=== PATIENT | female | born 1995 | race Asian ===

== ENCOUNTER 2018-09-27 19:34 | Emergency (ER) | payer OTHER ==
[2018-09-27 20:08] VITALS: BP 141/84
--- NOTE | 2018-09-27 20:57 | UC ---
Abdominal Pain Female HPI - HPI Summary HPI Summary: 23 y/o female presents to urgent care accompany by her friend c/o diffuse cramping abdominal pain since 1530pm today. Pt reports symptoms started w/ nausea and then severe cramping abdominal pain developed. She took Advil PO, 1 tab, but pain didn't improve, it is constant, starts around umbilicus and then becomes sharp and diffuse radiating to her mid back, Pain 7/10 in severity . Pt states 2 loose BM today. Pt Ate lunch normally and she though it was food poisoning at first. Pt Pt denies fever, SOB, chest pain, N/V/D, flank pain, urinary symptoms, vaginal discharge or Hx of STD's. - History of Current Complaint Chief Complaint: UCAbdominalPain Stated Complaint: ABDOMINAL PAIN Time Seen by Provider: 09/27/18 20:18 Hx Obtained From: Patient Hx Last Menstrual Period: mid august ?: No Onset/Duration: Gradual Onset Timing: Constant - but then becomes sharp at times Severity Initially: Mild Severity Currently: Moderate Pain Intensity: 7 Pain Scale Used: 0-10 Numeric Location: Diffuse - starts in the periumbilical area Radiates: Yes Radiates to: Other - back Character: Cramping Aggravating Factor(s): Nothing Alleviating Factor(s): OTC Analgesics - took 1 tab advil PO around 1600pm, but then pain returned in waves Associated Signs and Symptoms: Positive: Back Pain, Nausea - which resolved now , Other: - 2 episodes of loose stool. Negative: Fever, Dizzy, Constipation, Blood in Stool, Urinary Symptoms, Decreased Appetite - Risk Factors Ectopic Risk Factor: Negative Ovarian Torsion Risk Factor: Negative Allergies/Adverse Reactions: Allergies Allergy/AdvReac Type Severity Reaction Status Date / Time azithromycin [From Zithromax] Allergy Rash Verified 09/27/18 20:04 milk Allergy Unknown Verified 09/27/18 20:05 Reaction Details peanut Allergy Unknown Verified 09/27/18 20:05 Reaction Details shellfish derived Allergy Unknown Verified 09/27/18 20:05 Reaction Details Sulfa (Sulfonamide Allergy Rash Verified 09/27/18 20:04 Antibiotics) eggs Allergy Unknown Uncoded 09/27/18 20:05 Reaction Details Home Medications: Home Medications Albuterol HFA INHALER* [Ventolin HFA Inhaler*] 1 puff INH Q4H PRN 09/27/18 [ History Confirmed 09/27/18] Fexofenadine (NF) [Rosalinda 180 (NF)] 180 mg PO DAILY 09/27/18 [History Confirmed 09/27/18] Fluticasone NASAL SPRAY 50MCG* [Flonase NASAL SPRAY 50MCG*] 2 spray BOTH NARES DAILY 09/27/18 [History Confirmed 09/27/18] PMH/Surg Hx/FS Hx/Imm Hx Previously Healthy: Yes Respiratory History: Asthma - Surgical History Surgical History: Yes Surgery Procedure, Year, and Place: R hip surgery May 2017 d/t injury - Family History Known Family History: Positive: Cardiac Disease, Hypertension - Social History Occupation: Student Lives: With Family Alcohol Use: None Substance Use Type: None Smoking Status (MU): Never Smoked Tobacco - Immunization History Vaccination Up to Date: Yes Review of Systems All Other Systems Reviewed And Are Negative: Yes Constitutional: Positive: Negative Skin: Positive: Negative Eyes: Positive: Negative ENT: Positive: Negative Respiratory: Positive: Negative Cardiovascular: Positive: Negative Gastrointestinal: Positive: Abdominal Pain - diffuse and cramping abdominal pain , Nausea, Other - 2 loose BM today Genitourinary: Positive: Negative Motor: Positive: Negative Neurovascular: Positive: Negative Musculoskeletal: Positive: Negative Neurological: Positive: Negative Psychological: Positive: Negative Is Patient Immunocompromised?: No Physical Exam - Summary Physical Exam Summary: Vital Signs Reviewed: Yes General:Patient is a well developed and nourished female adolescent who is sitting comfortable in the examining table. Patient is not in any acute respiratory distress. Eyes: Positive: Conjunctiva Clear - PERRLA, EOMI, fundi grossly normal ENT: Positive: Normal ENT inspection, Hearing grossly normal, Pharynx normal, TMs normal Neck: Positive: Supple, Nontender, No Lymphadenopathy Respiratory: Positive: Chest non-tender, Lungs clear, Normal breath sounds, No respiratory distress Cardiovascular: Positive: RRR,S1 and S2 present, No Murmur, Pulses Normal, Brisk Capillary Refill Abdomen Description: Positive: Flat with no distention. No surface trauma, scars, incisions. normal bowel sounds present in all four quadrants. Tenderness on deep palpation oover the periumbilizal area and LLQ abdomen, guarding, rigidity to palpation. no distension,No masses palpated, no pulsation in epigastric area. No organomegaly. Negative [place] signs. No rebound in the lower quadrants. mild tenderness over McBurneys point. Good femoral pulses bilaterally. No hernia noted. No CVAT bilaterally Musculoskeletal: Positive: Strength Intact, ROM Intact, No Edema,FROM in all major joints, no edema, no cyanosis or clubbing. Neuro: Alert and oriented x 3. No acute neurological deficits. Speech is normal. Psychological: WNL Skin: Dry and warm Triage Information Reviewed: Yes Vital Signs: Initial Vital Signs Temp 99.0 F 09/27/18 20:06 Pulse 62 09/27/18 20:06 Resp 18 09/27/18 20:06 BP 141/84 09/27/18 20:06 Pulse Ox 99 09/27/18 20:06 Abd Pain Female Course/Dx - Course Course Of Treatment: 23 y/o female presents to urgent care accompany by her friend c/o diffuse cramping abdominal pain since 1530pm today. Pt reports symptoms started w/ nausea and then severe cramping abdominal pain developed. She took Advil PO, 1 tab, but pain didn't improve, it is constant, starts around umbilicus and then becomes sharp and diffuse radiating to her mid back, Pain 7/10 in severity . Pt states 2 loose BM today. Pt Ate lunch normally and she though it was food poisoning at first. Pt Pt denies fever, SOB, chest pain, N/V/D, flank pain, urinary symptoms, vaginal discharge or Hx of STD's. Hx obtained. PT is hemodynamically stable, Vital: WNL. PT w/ Point tenderness over the periumbilical area and LLQ abdomen and mild over McBurneys point on examination. UA ordered: negative, tet: negative. Pt needs an abdominal CT and ultrasound to r/o appendicitis or ovarian torsion etc. At this moment, No Ultrasound available. Pt's symptoms and he evaluated PT and he also agrees. He recommended Pt to go to [facility] for further evaluation and treatment. Pt offered Ambulance transfer, but she decline and stated her friend will take her to the [place] ER. I discussed Pt's symptoms w/ DR Syed at [facility] who accepted the patient. Pt left the clinic hemodynamically stable , A&OX3 and ambulating - Differential Dx/Diagnosis Differential Diagnosis: Appendicitis, Ovarian Cyst, Peptic Ulcer Disease, , Urinary Tract Infection, Other - gastroenteritis Provider Diagnosis: Acute abdominal pain Discharge - Sign-Out/Discharge Documenting (check all that apply): Patient Departure - d/c home All imaging exams completed and their final reports reviewed: No Studies - Discharge Plan Condition: Stable Disposition: HOME-RECOMMEND TO ED Patient Education Materials: Acute Abdominal Pain (ED) Referrals: [facility] [place] [facility] [Primary Care Provider] - Additional Instructions: I think you need a higher level or care for your presenting symptoms. I highly recommend you to go to the ER for further evaluation and treatment. The risks of not going can be , sepsis, peritonitis, ovarian cyst or torsion, appendicitis, etc. I spoke to the ER attending Dr. Syed . They are expecting you. - Billing Disposition and Condition Condition: STABLE Disposition: Home-Recommend to ED
== END 2018-09-27 21:25 | disposition home health service (06) ==
LOC: UCEAST 19:34
DX: R10.33 Periumbilical pain (principal); J45.909 Unspecified asthma, uncomplicated; Z88.1 Allergy status to other antibiotic agents; Z91.011 Allergy to milk products; Z91.010 Allergy to peanuts; Z91.013 Allergy to seafood; Z88.2 Allergy status to sulfonamides; Z91.012 Allergy to eggs
CPT/HCPCS: 81003; 84702; 99202; G0463

== ENCOUNTER → 2018-09-27 22:01 | Emergency (ER) | payer OTHER ==
[~2018-09-27 22:01] MED LIST: Bisacodyl SUPP* 10 MG SUPP PR ONE; Magnesium CITRATE* 300 ML BTL PO ONE
--- NOTE | 2018-09-27 23:25 | ED ---
Abdominal Pain/Female - HPI Summary HPI Summary: This patient is a 23 year old F presenting to [facility] referred by urgent care accompanied by friend with a chief complaint of intermittent diffuse abd pain radiating to back that began early today. The patient rates the pain 0/10 in severity. Symptoms aggravated by nothing. Symptoms alleviated by nothing. Patient reports nausea (resolved). Patient denies vomiting. - History of Current Complaint Chief Complaint: EDAbdPain Stated Complaint: "ABD PAIN/SENT FROM CC" PER PT Time Seen by Provider: 09/27/18 23:21 Hx Obtained From: Patient Hx Last Menstrual Period: mid august ?: No Onset/Duration: Sudden Onset, Lasting Hours, Still Present Timing: Constant Severity Initially: Mild Severity Currently: Mild Pain Intensity: 0 Pain Scale Used: 0-10 Numeric Location: Diffuse Radiates: Yes Radiates to: Back Aggravating Factor(s): Nothing Alleviating Factor(s): Nothing Associated Signs and Symptoms: Positive: Nausea. Negative: Vomiting Allergies/Adverse Reactions: Allergies Allergy/AdvReac Type Severity Reaction Status Date / Time shellfish derived Allergy Severe Anaphylatic Verified 09/27/18 23:44 Shock Sulfa (Sulfonamide Allergy Intermediate Rash Verified 09/27/18 23:43 Antibiotics) azithromycin [From Zithromax] Allergy Rash Verified 09/27/18 22:06 milk Allergy Unknown Verified 09/27/18 22:06 Reaction Details peanut Allergy Unknown Verified 09/27/18 22:06 Reaction Details eggs Allergy Severe Anaphylatic Uncoded 09/27/18 23:45 Shock PMH/Surg Hx/FS Hx/Imm Hx Previously Healthy: No Respiratory History: Reports: Hx Asthma Opthamlomology History: Denies: Hx Legally Blind EENT History: Denies: Hx Deafness - Surgical History Surgery Procedure, Year, and Place: R hip surgery May 2017 d/t injury Infectious Disease History: No Infectious Disease History: Denies: Traveled Outside the [place] in Last 30 Days - Family History Known Family History: Positive: Cardiac Disease, Hypertension - Social History Occupation: Student Lives: Dormitory/Roommates Alcohol Use: None Hx Substance Use: No Substance Use Type: Reports: None Hx Tobacco Use: No Smoking Status (MU): Never Smoked Tobacco Review of Systems Negative: Fever Positive: Abdominal Pain, Nausea. Negative: Vomiting All Other Systems Reviewed And Are Negative: Yes Physical Exam - Summary Physical Exam Summary: VITAL SIGNS: Reviewed. GENERAL: Patient is a well-developed and nourished female who is lying comfortable in the stretcher. Patient is not in any acute respiratory distress. HEAD AND FACE: No signs of trauma. No ecchymosis, hematomas or skull depressions. No sinus tenderness. EYES: PERRLA, EOMI x 2, No injected conjunctiva, no nystagmus. EARS: Hearing grossly intact. Ear canals and tympanic membranes are within normal limits. MOUTH: Oropharynx within normal limits. NECK: Supple, trachea is midline, no adenopathy, no JVD, no carotid bruit, no c- spine tenderness, neck with full ROM CHEST: Symmetric, no tenderness at palpation LUNGS: Clear to auscultation bilaterally. No wheezing or crackles. CVS: Regular rate and rhythm, S1 and S2 present, no murmurs or gallops appreciated. ABDOMEN: Soft, non-tender. No signs of distention. No rebound no guarding, and no masses palpated. Hyperactive bowel sounds EXTREMITIES: FROM in all major joints, no edema, no cyanosis or clubbing. NEURO: Alert and oriented x 3. No acute neurological deficits. Speech is normal and follows commands. SKIN: Dry and warm Triage Information Reviewed: Yes Vital Signs On Initial Exam: Initial Vitals Temp Pulse Resp BP Pulse Ox 98.7 F 60 16 119/77 97 09/27/18 22:03 09/27/18 22:03 09/27/18 22:03 09/27/18 22:03 09/27/18 22:03 Vital Signs Reviewed: Yes Diagnostics - Vital Signs Vital Signs Temp Pulse Resp BP Pulse Ox 09/27/18 22:03 98.7 F 60 16 119/77 97 - Laboratory Result Diagrams: 09/27/18 23:32 09/27/18 23:32 Lab Statement: Any lab studies that have been ordered have been reviewed, and results considered in the medical decision making process. - Radiology Abdomen XR Radiology Interpretation Completed By: ED Physician Summary of Radiographic Findings: Abdomen XR reveals, per ED physician, increased colonic stool consistent with constipation. Abdominal Pain Fem Course/Dx - Course Course Of Treatment: This patient is a 23 year old F presenting to [facility] referred by urgent care accompanied by friend with a chief complaint of intermittent diffuse abd pain radiating to back that began early today. Physical Exam Findings: Nml. Abdomen XR reveals, per ED physician, increased colonic stool consistent with constipation. Bloodwork obtained. In the ED course the patient was given magnesium citrate and Dulcolax. Patient will be discharged home with follow up from PCP. The patient is agreeable with this plan. - Diagnoses Provider Diagnoses: Constipation Discharge - Sign-Out/Discharge Documenting (check all that apply): Patient Departure - Discharge home Patient Received Moderate/Deep Sedation with Procedure: No - Discharge Plan Condition: Stable Disposition: HOME Patient Education Materials: Constipation (ED) Referrals: [facility] PHYSICIAN REFERRAL [Outside] - 2 Days Additional Instructions: Increase fiber intake, take Metamucil. RETURN TO THE EMERGENCY DEPARTMENT FOR NEW OR WORSENING SYMPTOMS - Attestation Statements Document Initiated by Scribe: Yes Documenting Scribe: Nohemy Moncada Provider For Whom Scribe is Documenting (Include Credential): Dr. Marisela Syed MD Scribe Attestation: Nohemy Catherine, scribed for Dr. Marisela Syed MD on 09/28/18 at 0015. Status of Scribe Document: Ready
[2018-09-27 23:39] LABS: ABS Eosinophils 0.2 10^3/ul (0-0.6); ABS Lymphocytes 2.4 10^3/ul (1.0-4.8); ABS Monocytes 0.5 10^3/ul (0-0.8); ABS Neutrophils 2.3 10^3/ul (1.5-7.7); Hematocrit 42 % (35-47); Hemoglobin 14.2 g/dL (12.0-16.0); Lymphocyte % 44.7 %; Mean Corpuscular HGB Conc 34 g/dL (31-36); Mean Corpuscular Hemoglobin 30 pg (27-31); Mean Corpuscular Volume 90 fL (80-97); Nucleated Red Blood Cells % 0.1; Platelet Count 230 10^3/uL (150-450); Red Blood Count 4.71 10^6 /uL (3.70-4.87); Red Cell Distribution Width 14 % (10.5-15); White Blood Count 5.4 10^3/uL (3.5-10.8)
[2018-09-27 23:57] LABS: ALT 13 U/L (7-52); AST 19 U/L (13-39); Albumin 4.5 g/dL (3.2-5.2); Albumin/Globulin Ratio 1.8 (1-3); Alkaline Phosphatase 60 U/L (34-104); Amylase 54 U/L (29-103); Anion Gap 6 mmol/L (2-11); BUN/Creatinine Ratio 16.9 (8-20); Blood Urea Nitrogen 12 mg/dL (6-24); C Reactive Protein < 1.00 mg/L (<8.01); CO2 Carbon Dioxide 23 mmol/L (22-32); Calcium 9.5 mg/dL (8.6-10.3); Chloride 108 mmol/L (101-111); EGFR African American 125.7 (>60); EGFR Non-African American 103.9 (>60); Globulin 2.5 g/dL (2-4); Glucose 96 mg/dL (70-100); Potassium 3.9 mmol/L (3.5-5.0); Sodium 137 mmol/L (135-145)
[2018-09-28 00:02] LABS: HCG Pregnancy < 0.60 mIU/mL
[2018-09-28 01:13] VITALS: BP 112/73
== END | disposition home or self-care (01) ==
LOC: ED 22:01
DX: K59.00 Constipation, unspecified (principal); R11.0 Nausea; Z88.2 Allergy status to sulfonamides
CPT/HCPCS: 36415; 74019; 80053; 82150; 83690; 84702; 85025; 86140; 99282; A9270-GY